=== PATIENT | female | born 1960 ===

== ENCOUNTER 2020-06-25 08:04 | Outpatient (CLI) | payer OTHER ==
[~2020-06-25 08:04] MED LIST: BACLOFEN10 MG PO; CELEBREX100 MG; DICLOFENAC POTA50 MG PO; MICARDIS40 MG; SKELAXIN800 MG PO
== END 2020-06-25 08:11 | disposition home or self-care (01) ==
LOC: RAD 08:04
PROVIDERS: ATTEND Physical Medicine & Rehabilitation
DX: M53.3 Sacrococcygeal disorders, not elsewhere classified (principal); S30.0XXA Contusion of lower back and pelvis, initial encounter

== ENCOUNTER 2021-07-02 12:45 | Emergency (ER) | payer OTHER ==
[~2021-07-02] VITALS: Ht 162.6 cm; Wt 81.6 kg
[~2021-07-02 12:45] MED LIST changes: +HYZAAR 100-12.1 EACH PO; +LEVOTHYROXINE25 MCG PO; +NABUMETONE500 MG PO; +PEPCID AC20 MG PO; +SULINDAC150 MG PO
== END 2021-07-02 20:35 | disposition home or self-care (01) ==
LOC: ER 12:45
DX: R05 Cough (principal); R53.81 Other malaise; R42 Dizziness and giddiness; R09.81 Nasal congestion; Z03.818 Encounter for observation for suspected exposure to other biological agents ruled out